=== PATIENT | female | born 1975 | race African-American/Black ===

== ENCOUNTER 2023-06-11 09:39 | Emergency (ER) | payer OTHER ==
[~2023-06-11] VITALS: Ht 162.6 cm; Wt 95.3 kg
[~2023-06-11 09:39] MED LIST: RALT400T; TRIZ; [UNRECOGNIZED DRUG - CODE]
[2023-06-11 09:48] VITALS: TEMP 97.9; O2SAT 100
[2023-06-11] MEDS ORDERED: KETOROLAC 30MG/ML VIAL IM STA (10:11)
[2023-06-11] MEDS ORDERED: ONDANSETRON 4MG ODT PO STA (10:11)
[2023-06-11 10:52] LABS: HEMOGLOBIN. 13.9 g/dL (12.0-16.0); MEAN CORPUSCULAR HEMOGLOBIN 31.1 pg (28.0-32.0); MEAN CORPUSCULAR VOLUME 91.5 fL (81.0-99.0); MEAN PLATELET VOLUME 9.2 fl (7.4-10.4); PLATELET 330 x1000/uL (130-400); RED BLOOD CELL COUNT 4.48 mill/uL (4.2-5.4); RED CELL DISTRIBUTION WIDTH 15.1 % (11.6-14.6); WHITE BLOOD COUNT 11.4 x1000/uL (4.5-11.0)
[2023-06-11 11:02] LABS: CHLORIDE 115 mEq/L (98-107); DIFFERENTIAL COMMENT 1; INDEX HEMOLYSI 1 (1-3); INDEX ICTERIC 1 (1-4); INDEX LIPEMIC 1 (1-3); POTASSIUM 3.7 mEq/L (3.5-5.1); SODIUM 139 mEq/L (136-145)
[2023-06-11 11:09] LABS: ALANINE AMINOTRANSFERASE 20 IU/L (13-61); ALBUMIN 3.5 g/dL (3.4-5.0); ASPARTATE AMINOTRANSFERASE 12 IU/L (15-37); BILIRUBIN TOTAL 0.3 mg/dL (0.1-1.0); CALCIUM 8.6 mg/dL (8.5-10.1); CARBON DIOXIDE 22 mEq/L (21-32); CREATININE 0.8 mg/dL (0.6-1.3); GLUCOSE 115 mg/dL (70-105); PROTEIN TOTAL 7.8 g/dL (6.0-8.3); UREA NITROGEN BLOOD 12 mg/dL (7-21)
[2023-06-11] MEDS ORDERED: HYDROCODONE/ACETAMINOPHEN 5/325MG TABLET PO ONE (11:15)
[2023-06-11 12:13] LABS: PLATELET ESTIMATE NORMAL
[2023-06-11 12:35] LABS: CLARITY URINE CLOUDY (CLEAR); COLOR URINE YELLOW (YELLOW); GLUCOSE URINE NEGATIVE (NEGATIVE); KETONES URINE NEGATIVE (NEGATIVE); LEUKOCYTE ESTERASE URINE 1+ (NEGATIVE); NITRITE URINE NEGATIVE (NEGATIVE); OCCULT BLOOD URINE 3+ (NEGATIVE); PH URINE 5.5 (4.5-8.0); PROTEIN URINE 1+ (NEGATIVE); SPECIFIC GRAVITY URINE 1.025 (1.005-1.030); UROBILINOGEN URINE 0.2 E.U./dL (0.2-1.0)
[2023-06-11] MEDS ORDERED: TAMSULOSIN HCL 0.4MG SR CAPSULE PO ONE (13:00)
[2023-06-11] MEDS ORDERED: ONDANSETRON HCL 4MG/2ML INJ IV STA (13:04)
[2023-06-11] MEDS ORDERED: MORPHINE SULFATE 4 MG/ML CPJ (NOT FOR IM USE) IV STA (13:04)
[2023-06-11 13:10] LABS: SQUAMOUS EPITHELIAL CELL URINE 1+ /lpf (RARE/1+)
[2023-06-11 13:11] LABS: BACTERIA URINE 1+; RBC URINE 50-100 /hpf (0-2); YEAST URINE NONE SEEN
[2023-06-11] MEDS ORDERED: SODIUM CHLORIDE 0.9% 1,000 ML IV ONE (13:15)
[2023-06-11] MEDS ORDERED: CEPHALEXIN 250MG CAPSULE PO ONE (17:30)
[2023-06-11] MEDS ORDERED: ACETAMINOPHEN 325MG TABLET PO ONE (18:15)
[2023-06-11] MEDS ORDERED: MORPHINE SULFATE 4 MG/ML CPJ (NOT FOR IM USE) IV ONE (20:30)
[2023-06-11 20:34] VITALS: BP 169/92; PULSE 68; RESP 16
== END 2023-06-11 20:56 | disposition short-term general hospital (02) ==
LOC: ER 09:39 → CANBEDREQ 16:56 → ER 20:56
DX: N13.6 Pyonephrosis (principal); R10.813 Right lower quadrant abdominal tenderness; D72.828 Other elevated white blood cell count; Z98.51 Tubal ligation status
CPT/HCPCS: 80053; 81003; 81025; 85025; 36415; 74176; 96361; 96372; 96374; 96375; 96376; 99285; Q0162; J1885; J2405; J2270; J7030; Z7610